=== PATIENT | female | born 1975 | race Hispanic/Latino ===

== ENCOUNTER 2017-04-13 20:19 | Emergency (ER) | payer SELFPAY ==
[~2017-04-13] VITALS: Ht 152.4 cm; Wt 54.8 kg
[~2017-04-13 20:19] MED LIST: NAPROSYN250 MG OR
[2017-04-13 23:31] VITALS: BP 140/71
== END 2017-04-13 23:31 | disposition short-term general hospital (02) | DRG 156 ==
LOC: ED 20:19
DX: T17.228A Food in pharynx causing other injury, initial encounter (principal); E11.9 Type 2 diabetes mellitus without complications; X58.XXXA Exposure to other specified factors, initial encounter